=== PATIENT | female | born 1955 | race Caucasian/White ===

== ENCOUNTER 2017-10-08 10:58 | Day surgery (SDC) | payer OTHER ==
[2017-09-30 15:10] VITALS: BMI 41.1
[~2017-10-08 10:58] MED LIST: LACTATED RINGERS 1,000 ML IV SCH
[2017-10-08] MEDS: PHENYLEPHRINE 10% OPHTH DROPS 5 ML BTL OP ONE ×3 (12:12→12:32)
[2017-10-08] MEDS: CYCLOPENTOLATE 1% OPHTH SOLN 2 ML BTL OP ONE ×3 (12:15→12:35)
[2017-10-08 12:18] VITALS: RESP 16; TEMP 98
[2017-10-08] MEDS: FLURBIPROFEN 0.03% OPHTH DROPS 2.5 ML BTL OP ONE ×3 (12:18→12:38)
[2017-10-08] MEDS ORDERED: LIDOCAINE 1% 20 ML VIAL (10MG/ML) FOR IV START INTRADERMA ONE (12:18)
[2017-10-08] MEDS ORDERED: PROPOFOL 10 MG/ML 20 ML VIAL IV ONE (13:14)
[2017-10-08] MEDS ORDERED: HYALURONATE SODIUM INTRAOCULAR 1 EACH SYRINGE (10MG/ML) INTRAOCULA ONE (13:19)
[2017-10-08] MEDS ORDERED: BALANCED SALT IRRIG SOLN COMB2 15 ML IRRIG.SOLN INTRAOCULA ONE (13:19)
[2017-10-08] MEDS ORDERED: EPINEPHrine (PF) 0.5 ML in BALANCED SALT IRRIG SOLN COMB2 500 ML IRRIGATION ONE (13:20)
[2017-10-08] MEDS ORDERED: LIDOCAINE 1% (PF) 10MG/ML VIAL MISCELLANE ONE (13:27)
--- NOTE | 2017-10-08 13:42 | P.OP ---
Date of Procedure: 10/08/17 Procedure(s) Performed: PREOPERATIVE DIAGNOSIS: Cataract, right eye. POSTOPERATIVE DIAGNOSIS: Cataract, right eye. OPERATION: Phacoemulsification cataract, right eye. DESCRIPTION OF PROCEDURE: The patient was taken to the preoperative holding area. Intravenous Propofol was given so as to bring about adequate sedation. The following mixture was given for local anesthesia: 5 mL of 2% lidocaine, 5 mL of 0.75% Marcaine, and 1 mL of Wydase. Approximately 4 mL was injected in the retrobulbar space of the surgical eye. Additional 1 mL was then directed to the temporal area of the surgical eye. This was performed to allow adequate neurological block of the facial muscles. The patient was revived and then taken into the operative room. The patient was prepped and draped in the usual sterile manner for the operative eye. A lid speculum was put into position. The conjunctiva was resected back from the limbus in the 12 o'clock position. Bleeding was controlled with electrocautery. A #69 blade was then used and a half-thickness scleral incision approximately 1-mm posterior to the limbus was made on bare sclera. This was shelved in the clear cornea using a crescent knife. Next a 15-degree blade was used to make a stab incision at the 3 o' clock position at the corneolimbal interface. Keratome blade was then used and the superior wound was extended into the anterior chamber. Viscoelastic was injected into the anterior chamber and to maintain its form. Next, a cystotome was used and a continuous anterior capsulotomy was made without difficulty. Hydrodissection using a blunt cannula and BSS was performed. Phaco probe was then employed and a groove extending from 12 to 6 o'clock in the lens was created. A Abimael wand was used through the stab incision so as to perform a divide and conquer technique. Next an irrigation aspiration probe was utilized and any residual cortex was removed from the eye. Again, viscoelastic was injected into the anterior chamber. An Isaias posterior chamber lens implant was placed in the cartridge and injected into the anterior chamber without difficulty. The Zodioey hook was utilized to spin the lens into position and this was again performed without any difficulty. The irrigation and aspiration probe was again employed and any residual viscoelastic was removed from the eye. Then BSS was injected into the limbal stab incision and the anterior chamber re-inflated. The conjunctiva was reapproximated using electrocautery. One drop of 0.25% Timoptic was placed over the corneal along with TobraDex ophthalmic ointment. Two sterile patches and a Sullivan eye shield were taped into position. The patient was transported to the recovery room in stable condition. Pathology: none sent Condition: stable Disposition: same day
[2017-10-08 14:03] VITALS: BP 136/83; PULSE 76
[2017-10-08] MEDS ORDERED: GENTAMICIN/PREDNISOL AC OPHTH OINT 3.5GM OPHTHALMIC ONE (23:00)
[2017-10-08] MEDS ORDERED: BUPIVACAINE (PF) 0.75% 5 ML, HYALURONIDASE, HUMAN RECOMB 150 UNIT, LIDOCAINE 2% (PF) 10... MISCELLANE ONE ×3 (23:00)
[2017-10-08] MEDS ORDERED: TIMOLOL 0.5% OPHTH DROPS 5 ML BTL OP ONE (23:00)
== END 2017-10-08 14:31 | disposition home or self-care (01) ==
LOC: OR 10:58
PROVIDERS: ATTEND Ophthalmology
DX: H25.11 Age-related nuclear cataract, right eye (principal); M19.90 Unspecified osteoarthritis, unspecified site; E66.9 Obesity, unspecified; Z83.3 Family history of diabetes mellitus; Z82.49 Family history of ischemic heart disease and other diseases of the circulatory system; Z87.891 Personal history of nicotine dependence; Z88.2 Allergy status to sulfonamides; Z88.5 Allergy status to narcotic agent; Z68.41 Body mass index [BMI] 40.0-44.9, adult; Z79.1 Long term (current) use of non-steroidal anti-inflammatories (NSAID)
CPT/HCPCS: 66984; V2632; J3470; J2001 ×2; J0171; J2704

== ENCOUNTER → 2019-02-02 | Outpatient (CLI) | payer OTHER ==
--- NOTE | 2019-02-02 16:42 | BD ---
EXAMINATION TYPE: Axial Bone Density DATE OF EXAM: 02/02/2019 COMPARISON: NONE CLINICAL HISTORY: Height: 65.7 IN Weight: 228 LBS RISK FACTORS HISTORY OF: History of Wrist Fracture: YES RIGHT When: AGE 27 Active: YES Postmenopausal woman: AGE 53 MEDICATIONS: Additional Medications: NONE EXAM MEASUREMENTS: Bone mineral densitometry was performed using the uSamp System. Bone mineral density as measured about the Lumbar spine is: ----- L1-L4(G/cm2): 1.585 T Score Values are as follows: ----- L2: 4.0 ----- L3: 3.9 ----- L4: 2.9 ----- L1-L4: 3.4 Bone mineral density BASELINE Bone mineral density about the R hip (g/cm2): 1.103 Bone mineral density about the L hip (g/cm2): 1.198 T Score values are as follows: -----R Neck: 0.5 -----L Neck: 1.1 -----R Total: 1.6 -----L Total: 2.0 Bone mineral density BASELINE IMPRESSION: Normal (Values between +1 and -1 indicate normal bone mass). Consider repeating this study in 5 year s or sooner if there is some new clinical indication. NOTE: T-SCORE=SD OF THE YOUNG ADULT MEAN.
--- NOTE | 2019-02-03 11:12 | MM ---
Reason for exam: screening (asymptomatic). History: Patient is postmenopausal. Took hormonal contraceptives for 1 year. Physical Findings: A clinical breast exam by your physician is recommended on an annual basis and results should be correlated with mammographic findings. MG Screening Mammo w CAD Bilateral CC and MLO view(s) were taken. There are scattered fibroglandular densities. A few scattered benign round punctate calcifications. No significant changes when compared with prior studies. ASSESSMENT: Negative, BI-RAD 1 RECOMMENDATION: Routine screening mammogram of both breasts in 1 year.
== END ==
LOC: RADMAMWWP 08:05
PROVIDERS: ATTEND Family Medicine
DX: Z12.31 Encounter for screening mammogram for malignant neoplasm of breast (principal); Z13.820 Encounter for screening for osteoporosis
CPT/HCPCS: 77067; 77080

== ENCOUNTER 2021-10-23 12:21 | Day surgery (SDC) | payer OTHER ==
[2021-10-19 10:57] VITALS: BMI 38.5
[~2021-10-23 12:21] MED LIST changes: +DEXAMETHASONE SOD PHOSPHATE 4 MG/ML 1 ML VIAL IV ONE; +MIDAZOLAM 2 MG/2 ML VIAL IV PRN; +ONDANSETRON 4 MG/2 ML VIAL IVP ONE; +Pre Op ABX Message 1 EACH MISC MISCELLANE ONE; +SCOPOLAMINE 1 MG/72 HR PATCH TRANSDERM ONE; +fentaNYL (PF) 50 MCG/ML 2 ML AMP IV PRN
[2021-10-23 12:48] VITALS: RESP 16; TEMP 97.3
[2021-10-23] MEDS ORDERED: LIDOCAINE 1% (10MG/ML) FOR IV START INTRADERMA ONE (13:02)
[2021-10-23] MEDS ORDERED: PROPOFOL 10 MG/ML 20 ML VIAL IV ONE (14:39)
[2021-10-23] MEDS ORDERED: LIDOCAINE 2% INJ 20 MG/ML (2 ML VIAL) ONE (14:39)
[2021-10-23] MEDS ORDERED: DEXAMETHASONE SOD PHOSPHATE 10 MG/ML 1 ML VIAL ONE (14:39)
[2021-10-23] MEDS ORDERED: MIDAZOLAM 2 MG/2 ML VIAL ONE (14:39)
[2021-10-23] MEDS ORDERED: KETOROLAC 15 MG/ML 1 ML VIAL ONE (14:39)
[2021-10-23] MEDS ORDERED: fentaNYL (PF) 50 MCG/ML 2 ML AMP ONE (14:39)
[2021-10-23] MEDS ORDERED: LIDOCAINE 1%-EPI 1:100,000 20 ML VIAL SQ ONE ×2 (14:44)
[2021-10-23] MEDS ORDERED: BUPIVACAINE (PF) 0.5% 30 ML VIAL MISCELLANE ONE ×2 (14:44)
[2021-10-23 15:23] VITALS: PULSE 85
--- NOTE | 2021-10-23 15:33 | P.OP ---
Date of Procedure: 10/23/21 Preoperative Diagnosis: Right middle finger mucous cyst Right middle finger DIP arthritis Postoperative Diagnosis: The same Procedure(s) Performed: 1 right middle finger excision of osteophyte 2 right middle finger excision of mucous cyst Anesthesia: MAC, local Surgeon: Kelley Winter Estimated Blood Loss (ml): 1 Pathology: none sent Condition: stable Disposition: PACU Indications for Procedure: Breana is a 66-year-old female who's noticed a bump on the radial side of her middle finger DIP joint. This has come and gone for quite a while now but is sore to the touch and quite bothersome. We had a long discussion about her treatment options and she would like to proceed with an excision of the cyst as well as a debridement of the osteophytes. She understands that this does not definitively treat the underlying arthritis there is a chance of recurrence. Description of Procedure: The patient, operative extremity, and procedure were identified in the preoperative holding area. After informed consent was obtained the patient was brought back to the operating room where a digital block was performed. The extremity was prepped and draped in normal sterile fashion. After formal timeout was performed a finger tourniquet was applied. A T-shaped incision was made overlying the mucous cyst. Dissection was carried down to the mucous cyst with care taken to save as many dorsal veins as possible. Extensor tendon was identified and the stalk of the cyst was found to enter the DIP joint. Extensor was carefully protected and the stalk of the cyst was removed. The extensor tendon was gently elevated and a large osteophyte was debrided off the distal phalanx. Tourniquet was then let down hemostasis was achieved and the wound was closed with 5-0 chromic sutures. Wound was dressed with Adaptic Cristobal wrap and a tongue depressor splint with Coban. Patient was aroused by the anesthesia team and brought back to PACU in stable condition
[2021-10-23 15:38] VITALS: BP 135/83
== END 2021-10-23 15:57 | disposition home or self-care (01) ==
LOC: OR 12:21
PROVIDERS: ATTEND Orthopaedic Surgery Hand Surgery
DX: M71.341 Other bursal cyst, right hand (principal); M19.041 Primary osteoarthritis, right hand; M25.741 Osteophyte, right hand; I10 Essential (primary) hypertension; E78.5 Hyperlipidemia, unspecified; Z88.2 Allergy status to sulfonamides; Z88.5 Allergy status to narcotic agent; Z79.899 Other long term (current) drug therapy; Z87.891 Personal history of nicotine dependence; Z82.49 Family history of ischemic heart disease and other diseases of the circulatory system; Z83.3 Family history of diabetes mellitus
CPT/HCPCS: 26160; 26236; J2250; J1100 ×2; J2405; J3010; J1885; J2704; J2001

== ENCOUNTER → 2021-12-06 | Outpatient (CLI) | payer OTHER ==
--- NOTE | 2021-12-06 19:12 | US ---
EXAMINATION TYPE: US kidneys/renal and bladder DATE OF EXAM: 12/06/2021 COMPARISON: NONE CLINICAL HISTORY: N18.30 CKD STAGE 3. CKD, pt states recent abnormal labs EXAM MEASUREMENTS: Right Kidney: 10.9 x 4.9 x 4.7 cm Left Kidney: 11.7 x 4.9 x 5.5 cm Right Kidney: Appeared wnl Left Kidney: Appeared wnl Bladder: wnl Bilateral Jets seen: No IMPRESSION: 1. Normal renal ultrasound
== END | disposition home or self-care (01) ==
LOC: RADUSWWP 16:10
PROVIDERS: ATTEND Family Medicine
DX: N18.30 Chronic kidney disease, stage 3 unspecified (principal)
CPT/HCPCS: 76770

== ENCOUNTER 2023-01-10 17:19 | Emergency (ER) | payer OTHER ==
--- NOTE | 2023-01-10 17:44 | ED ---
General Adult HPI - General Source: patient, RN notes reviewed <Doreen Moore - Last Filed: 01/10/23 17:43> <Lincoln Hutchinson - Last Filed: 01/10/23 20:49> <Christiano Desir - Last Filed: 01/11/23 03:42> - General Stated complaint: Increased heart rate Time Seen by Provider: 01/10/23 17:42 - History of Present Illness Initial comments: 67-year-old female presents emergency Department with chief complaint of shortness of breath. Patient states that she was seen at her primary care provi jose j's office today, Dr. Yan who sent her to the emergency center for further evaluation. (Doreen Moore) This is a 67-year-old female who presents emergency department stating that for the about 2 weeks she has been sick and she went to an urgent care and they told her that she had a sinus infection double. Patient states ear infection and bronchitis slight placed on antibiotic she believes was amoxicillin. Patient states she was finished with antibiotics yesterday. Patient states she still doesn't feel well and she's been getting a bunch of headaches today is part icularly anytime she stands up. Patient has noticed that her blood pressure was elevated at triage and she states is extremely unusual for her. Patient denies any numbness weakness. Patient states she does have quite a cough and has not gone away at all. Patient states she has chest pain when she coughs and 2 weeks ago she was having a little anterior chest pain as well. Patient denies abdomi nal pain palpitations nausea vomiting diarrhea (Lincoln Hutchinson) - Related Data Home Medications Medication Instructions Recorded Confirmed hydroCHLOROthiazide 25 mg PO DAILY 10/19/21 01/10/23 Mirtazapine [Remeron] 15 mg PO HS 01/10/23 01/10/23 Rosuvastatin [Crestor] 10 mg PO DAILY 01/10/23 01/10/23 Allergies Allergy/AdvReac Type Severity Reaction Status Date / Time Sulfa (Sulfonamide Allergy Rash//nause Verified 01/10/23 20:14 Antibiotics) a/vomiting codeine AdvReac "makes me Verified 01/10/23 20:14 hyper" Review of Systems ROS Other: All systems not noted in ROS Statement are negative. <Doreen Moore - Last Filed: 01/10/23 17:43> ROS Other: All systems not noted in ROS Statement are negative. <Lincoln Hutchinson - Last Filed: 01/10/23 20:49> ROS Other: All systems not noted in ROS Statement are negative. <KarleeChristiano Celia - Last Filed: 01/11/23 03:42> ROS Statement: Those systems with pertinent positive or pertinent negative responses have been documented in the HPI. Past Medical History Past Medical History: Eye Disorder, GERD/Reflux, Hyperlipidemia, Hypertension, Osteoarthritis (OA) Additional Past Medical History / Comment(s): MIGRAINE HEADACHE, KIDNEY FUNCTION AT 57, History of Any Multi-Drug Resistant Organisms: None Reported Past Surgical History: Cholecystectomy, Orthopedic Surgery, Tubal Ligation Additional Past Surgical History / Comment(s): rt eye detached retina sx, left knee arthroscopy x2, rt knee x1, tendons removed from josse feet and put in josse thumb joints Past Anesthesia/Blood Transfusion Reactions: Motion Sickness Smoking Status: Former smoker - Past Family History Son(s) Family Medical History: Deep Vein Thrombosis (DVT) <Doreen Moore - Last Filed: 01/10/23 17:43> General Exam <Doreen Moore - Last Filed: 01/10/23 17:43> <Lincoln Hutchinson - Last Filed: 01/10/23 20:49> - General Exam Comments Initial Comments: Visual Physical Exam Vital signs reviewed General: Well-appearing, nontoxic, no acute distress. Head: Normocephalic, atraumatic Eyes: PERRLA, EOMI ENT: Airway patent Chest: Nonlabored breathing Skin: No visual rash, normal skin tone Neuro: Alert and oriented 3 Musculoskeletal: No gross abnormalities (Doreen Moore) GENERAL: Patient is well-developed and well-nourished. Patient is nontoxic and well- hydrated and is in mild distress. ENT: Neck is soft and supple. No significant lymphadenopathy is noted. Oropharynx is clear. Moist mucous membranes. Neck has full range of motion without eliciting any pain. EYES: The sclera were anicteric and conjunctiva were pink and moist. Extraocular movements were intact and pupils were equal round and reactive to light. Eyelids were unremarkable. PULMONARY: Unlabored respirations. Good breath sounds bilaterally. No audible rales rhonchi or wheezing was noted. CARDIOVASCULAR: Patient is tachycardic at 130 beats a minute ABDOMEN: Soft and nontender with normal bowel sounds. SKIN: Skin is clear with no lesions or rashes and otherwise unremarkable. NEUROLOGIC: Patient is alert and oriented x3. Cranial nerves II through XII are grossly intact. Motor and sensory are also intact. Normal speech, volume and content. Symmetrical smile. MUSCULOSKELETAL: Normal extremities with adequate strength and full range of motion. LYMPHATICS: No significant lymphadenopathy is noted PSYCHIATRIC: Normal psychiatric evaluation. (Lincoln Hutchinson) Course Vital Signs 01/10/23 01/10/23 01/10/23 17:42 19:43 20:00 Temperature 99.0 F 101.5 F H Pulse Rate 127 H 129 H Respiratory 22 32 H Rate Blood Pressure 191/79 170/106 177/88 O2 Sat by Pulse 97 Oximetry 01/10/23 01/10/23 01/10/23 20:21 21:17 22:20 Temperature 100.8 F H Pulse Rate 129 H 113 H Respiratory 26 H 20 Rate Blood Pressure 191/103 163/75 125/80 O2 Sat by Pulse Oximetry 01/11/23 01/11/23 02:13 02:30 Temperature 97.5 F L Pulse Rate 93 Respiratory 17 Rate Blood Pressure 106/57 O2 Sat by Pulse Oximetry Medical Decision Making <Doreen Moore - Last Filed: 01/10/23 17:43> - Lab Data Result diagrams: 01/10/23 18:30 01/10/23 18:30 <Lincoln Hutchinson - Last Filed: 01/10/23 20:49> - Lab Data Result diagrams: 01/10/23 18:30 01/10/23 18:30 <Christiano Desir - Last Filed: 01/11/23 03:42> - Medical Decision Making I preformed the quick note portion of this chart. Electronically signed by Doreen Moore PA-C (Doreen Moore) EKG is interpreted by myself. EKG shows sinus tachycardia at 130 bpm CO interval 228 QRS is 82 QT interval 333 QTC is 410. Patient's EKG shows no ST segment elevation or depression Was pt. sent in by a medical professional or institution ([facility], [employer]AR[employer], urgent care, hospital, or fci...) When possible be specific @ -Patient's primary medical care doctor sent her to the emergency department Did you speak to anyone other than the patient for history (EMS, parent, family, police, friend...)? What history was obtained from this source @ -[No] Did you review nursing and triage notes (agree or disagree)? Why? @ -[I reviewed and agree with nursing and triage notes] Were old charts reviewed (outside hosp., previous admission, EMS record, old EKG, old radiological studies, urgent care reports/EKG's, fci records)? Report findings @ -[No old charts were reviewed] Differential Diagnosis (chest pain, altered mental status, abdominal pain women, abdominal pain men, vaginal bleeding, weakness, fever, dyspnea, syncope, headache, dizziness, GI bleed, back pain, seizure, CVA, palpatations, mental health, musculoskeletal)? @ -Differential Fever: Pneumonia, viral URI, endocarditis, myocarditis, pericarditis, otitis, sinusitis, peritonsillar Abscess, retropharyngeal Abscess, epiglottitis, peritonitis, appendicitis, Silvia cystitis, diverticulitis, hepatitis, colitis, UTI, PID, TOA, pyelonephritis, prostatitis, epididymitis, meningitis, encephalitis, pulmonary embolism, CVA, thyroid storm, pancreatitis, adrenal crisis, cavernous sinus thrombosis, this is not meant to be an all-inclusive list. EKG interpreted by me (3pts min.). @ -[As above] X-rays interpreted by me (1pt min.). @ -Chest x-ray shows no acute abnormality CT interpreted by me (1pt min.). @ -[None done] U/S interpreted by me (1pt. min.). @ -[None done] What testing was considered but not performed or refused? (CT, X-rays, U/S, labs)? Why? @ -[None] What meds were considered but not given or refused? Why? @ -[None] Did you discuss the management of the patient with other professionals (pro fessionals i.e. , PA, TARIFF EXPERT, lab, RT, psych nurse, director social welfare, newspaper manager, teacher, hazard mitigation officer, case loader operator)? Give summary @ -[No] Was smoking cessation discussed for >3mins.? @ -[No] Was critical care preformed (if so, how long)? @ -[No] Were there social determinants of health that impacted care today? How? (Homelessness, low income, unemployed, alcoholism, drug addiction, brar sportation, low edu. Level, literacy, decrease access to med. care, assisted, rehab)? @ -[No] Was there de-escalation of care discussed even if they declined (Discuss DNR or withdrawal of care, Hospice)? DNR status @ -[No] What co-morbidities impacted this encounter? (DM, HTN, Smoking, COPD, CAD, Cancer, CVA, ARF, Chemo, Hep., AIDS, mental health diagnosis, sleep apnea, morbid obesity)? @ -[None] Was patient admitted / discharged? Hospital course, mention meds given and route, prescriptions, significant lab abnormalities, going to OR and other pertinent info. @ -Dr. Desir was taking over the patient at 9 PM (Lincoln Hutchinson) Patient care signed out to me by previous shift physician, Dr. Hutchinson. Briefly, patient 67-year-old female sent in by her primary care physician for worsening URI symptoms. She complete course of antibiotics. Vitals upon arrival showed an elevated blood pressure 191/79 with tachycardia 127. She had a temperature 11.5. She been doing with URI type symptoms for the last several days. Patient observed in emergency department for almost the totality of 10 hours due to delay in obtaining urinary sample for urinalysis. Urinalysis is negative. Rest of labs within acceptable limits. Vital test negative. Labs are unremarkable. Chest x-ray is clear, computed tomography scan of the brain is negative. Patient does not have a pulmonary embolism which she explains is why she is initially sent to the emergency room by her primary care doctor. Patient likely suffering from persistent URI cold symptoms. Patient discharged. Her primary care doctor had already ordered her antibiotics. Patient grew for discharge. (Christiano Desir) - Lab Data Lab Results 01/10/23 01/10/23 01/10/23 Range/Units 18:30 18:30 18:30 WBC 11.7 H (3.8-10.6) k/uL RBC 5.24 (3.80-5.40) m/uL Hgb 14.8 (11.4-16.0) gm/dL Hct 44.0 (34.0-46.0) % MCV 84.1 (80.0-100.0) fL MCH 28.2 (25.0-35.0) pg MCHC 33.5 (31.0-37.0) g/dL RDW 15.0 (11.5-15.5) % Plt Count 207 (150-450) k/uL MPV 8.4 Neutrophils % 64 % Lymphocytes % 23 % Monocytes % 4 % Eosinophils % 7 % Basophils % 0 % Neutrophils # 7.5 (1.3-7.7) k/uL Lymphocytes # 2.7 (1.0-4.8) k/uL Monocytes # 0.4 (0-1.0) k/uL Eosinophils # 0.8 H (0-0.7) k/uL Basophils # 0.0 (0-0.2) k/uL PT 10.1 (10.0-12.5) sec INR 0.9 (<1.2) APTT 26.3 (22.0-30.0) sec D-Dimer (<0.60) mg/L FEU Sodium 138 (137-145) mmol/L Potassium 3.9 (3.5-5.1) mmol/L Chloride 101 (98-107) mmol/L Carbon Dioxide 25 (22-30) mmol/L Anion Gap 12 mmol/L BUN 15 (7-17) mg/dL Creatinine 0.86 (0.52-1.04) mg/dL Est GFR (CKD-EPI)AfAm 83 (>60 ml/min/1.73 sqM) Est GFR (CKD-EPI)NonAf 72 (>60 ml/min/1.73 sqM) Glucose 108 H (74-99) mg/dL Plasma Lactic Acid Quinn (0.7-2.0) mmol/L Calcium 9.4 (8.4-10.2) mg/dL Total Bilirubin 0.7 (0.2-1.3) mg/dL AST 23 (14-36) U/L ALT 22 (4-34) U/L Alkaline Phosphatase 82 (38-126) U/L Troponin I (0.000-0.034) ng/mL NT-Pro-B Natriuret Pep <20 pg/mL Total Protein 7.5 (6.3-8.2) g/dL Albumin 4.5 (3.5-5.0) g/dL Urine Color Urine Appearance (Clear) Urine pH (5.0-8.0) Ur Specific [place] (1.001-1.035) Urine Protein (Negative) Urine Glucose (UA) (Negative) Urine Ketones (Negative) Urine Blood (Negative) Urine Nitrite (Negative) Urine Bilirubin (Negative) Urine Urobilinogen (<2.0) mg/dL Ur Leukocyte Esterase (Negative) Heterophile Antibody (Negative) Influenza Type A (PCR) (Not Detectd) Influenza Type B (PCR) (Not Detectd) RSV (PCR) (Not Detectd) SARS-CoV-2 (PCR) (Not Detectd) 01/10/23 01/10/23 01/10/23 Range/Units 18:30 18:30 20:03 WBC (3.8-10.6) k/uL RBC (3.80-5.40) m/uL Hgb (11.4-16.0) gm/dL Hct (34.0-46.0) % MCV (80.0-100.0) fL MCH (25.0-35.0) pg MCHC (31.0-37.0) g/dL RDW (11.5-15.5) % Plt Count (150-450) k/uL MPV Neutrophils % % Lymphocytes % % Monocytes % % Eosinophils % % Basophils % % Neutrophils # (1.3-7.7) k/uL Lymphocytes # (1.0-4.8) k/uL Monocytes # (0-1.0) k/uL Eosinophils # (0-0.7) k/uL Basophils # (0-0.2) k/uL PT (10.0-12.5) sec INR (<1.2) APTT (22.0-30.0) sec D-Dimer 0.53 (<0.60) mg/L FEU Sodium (137-145) mmol/L Potassium (3.5-5.1) mmol/L Chloride (98-107) mmol/L Carbon Dioxide (22-30) mmol/L Anion Gap mmol/L BUN (7-17) mg/dL Creatinine (0.52-1.04) mg/dL Est GFR (CKD-EPI)AfAm (>60 ml/min/1.73 sqM) Est GFR (CKD-EPI)NonAf (>60 ml/min/1.73 sqM) Glucose (74-99) mg/dL Plasma Lactic Acid Quinn 1.5 (0.7-2.0) mmol/L Calcium (8.4-10.2) mg/dL Total Bilirubin (0.2-1.3) mg/dL AST (14-36) U/L ALT (4-34) U/L Alkaline Phosphatase (38-126) U/L Troponin I <0.012 (0.000-0.034) ng/mL NT-Pro-B Natriuret Pep pg/mL Total Protein (6.3-8.2) g/dL Albumin (3.5-5.0) g/dL Urine Color Urine Appearance (Clear) Urine pH (5.0-8.0) Ur Specific [place] (1.001-1.035) Urine Protein (Negative) Urine Glucose (UA) (Negative) Urine Ketones (Negative) Urine Blood (Negative) Urine Nitrite (Negative) Urine Bilirubin (Negative) Urine Urobilinogen (<2.0) mg/dL Ur Leukocyte Esterase (Negative) Heterophile Antibody (Negative) Influenza Type A (PCR) (Not Detectd) Influenza Type B (PCR) (Not Detectd) RSV (PCR) (Not Detectd) SARS-CoV-2 (PCR) (Not Detectd) 01/10/23 01/10/23 01/11/23 Range/Units 20:19 22:22 02:39 WBC (3.8-10.6) k/uL RBC (3.80-5.40) m/uL Hgb (11.4-16.0) gm/dL Hct (34.0-46.0) % MCV (80.0-100.0) fL MCH (25.0-35.0) pg MCHC (31.0-37.0) g/dL RDW (11.5-15.5) % Plt Count (150-450) k/uL MPV Neutrophils % % Lymphocytes % % Monocytes % % Eosinophils % % Basophils % % Neutrophils # (1.3-7.7) k/uL Lymphocytes # (1.0-4.8) k/uL Monocytes # (0-1.0) k/uL Eosinophils # (0-0.7) k/uL Basophils # (0-0.2) k/uL PT (10.0-12.5) sec INR (<1.2) APTT (22.0-30.0) sec D-Dimer (<0.60) mg/L FEU Sodium (137-145) mmol/L Potassium (3.5-5.1) mmol/L Chloride (98-107) mmol/L Carbon Dioxide (22-30) mmol/L Anion Gap mmol/L BUN (7-17) mg/dL Creatinine (0.52-1.04) mg/dL Est GFR (CKD-EPI)AfAm (>60 ml/min/1.73 sqM) Est GFR (CKD-EPI)NonAf (>60 ml/min/1.73 sqM) Glucose (74-99) mg/dL Plasma Lactic Acid Quinn (0.7-2.0) mmol/L Calcium (8.4-10.2) mg/dL Total Bilirubin (0.2-1.3) mg/dL AST (14-36) U/L ALT (4-34) U/L Alkaline Phosphatase (38-126) U/L Troponin I (0.000-0.034) ng/mL NT-Pro-B Natriuret Pep pg/mL Total Protein (6.3-8.2) g/dL Albumin (3.5-5.0) g/dL Urine Color Light Yellow Urine Appearance Clear (Clear) Urine pH 6.0 (5.0-8.0) Ur Specific [place] 1.004 (1.001-1.035) Urine Protein Negative (Negative) Urine Glucose (UA) Negative (Negative) Urine Ketones Negative (Negative) Urine Blood Negative (Negative) Urine Nitrite Negative (Negative) Urine Bilirubin Negative (Negative) Urine Urobilinogen 0.2 (<2.0) mg/dL Ur Leukocyte Esterase Negative (Negative) Heterophile Antibody Negative (Negative) Influenza Type A (PCR) Not Detected (Not Detectd) Influenza Type B (PCR) Not Detected (Not Detectd) RSV (PCR) Not Detected (Not Detectd) SARS-CoV-2 (PCR) Not Detected (Not Detectd) Disposition <Doreen Moore - Last Filed: 01/10/23 17:43> <Lincoln Hutchinson - Last Filed: 01/10/23 20:49> Is patient prescribed a controlled substance at d/c from ED?: No Time of Disposition: 03:42 <Christiano Desir - Last Filed: 01/11/23 03:42> Clinical Impression: URI (upper respiratory infection) Disposition: HOME SELF-CARE Condition: Good Instructions (If sedation given, give patient instructions): Cold Symptoms (ED) Referrals: Mt Yan MD [Primary Care Provider] - 1-2 days
--- NOTE | 2023-01-10 18:27 | XR ---
EXAMINATION: XR chest 2V: 01/10/2023 5:57 PM CLINICAL INDICATION: difficulty breathing TECHNIQUE: Departmental protocol COMPARISON: None FINDINGS: The lungs are clear. The pleural spaces are negative. The cardiac silhouette is not enlarged. The remainder of the mediastinal silhouette is unremarkable. The skeletal structures and soft tissues are negative for acute findings. IMPRESSION: No acute radiographic process.
[2023-01-10 19:00] LABS: Basophils % (A) 0 %; Eosinophils # (A) 0.8 k/uL (0-0.7); Eosinophils % (A) 7 %; HGB 14.8 gm/dL (11.4-16.0); Lymphocytes # (A) 2.7 k/uL (1.0-4.8); Lymphocytes % (A) 23 %; MCH 28.2 pg (25.0-35.0); MCHC 33.5 g/dL (31.0-37.0); MCV 84.1 fL (80.0-100.0); Mean Platelet Volume 8.4; Monocytes # (A) 0.4 k/uL (0-1.0); Monocytes % (A) 4 %; Neutrophils # (A) 7.5 k/uL (1.3-7.7); Neutrophils % (A) 64 %; Platelet Count 207 k/uL (150-450); RBC 5.24 m/uL (3.80-5.40); WBC 11.7 k/uL (3.8-10.6)
[2023-01-10 19:03] LABS: ALT 22 U/L (4-34); AST 23 U/L (14-36); African American GFR (CKD) 83 (>60 ml/min/1.73 sqM); Albumin 4.5 g/dL (3.5-5.0); Alkaline Phosphatase 82 U/L (38-126); Anion Gap 12 mmol/L; Blood Urea Nitrogen 15 mg/dL (7-17); Calcium 9.4 mg/dL (8.4-10.2); Carbon Dioxide 25 mmol/L (22-30); Chloride 101 mmol/L (98-107); Glucose 108 mg/dL (74-99); Non-African American GFR(CKD) 72 (>60 ml/min/1.73 sqM); Potassium 3.9 mmol/L (3.5-5.1); Sodium 138 mmol/L (137-145); Total Bilirubin 0.7 mg/dL (0.2-1.3); Total Protein 7.5 g/dL (6.3-8.2)
[2023-01-10 19:11] LABS: NT-Pro-B-Type Natriuretic Pept <20 pg/mL
[2023-01-10] MEDS ORDERED: ACETAMINOPHEN TAB 500 MG TAB PO STA (19:57)
[2023-01-10] MEDS ORDERED: IBUPROFEN 600 MG TAB PO STA (19:57)
[2023-01-10] MEDS ORDERED: SODIUM CHLORIDE 0.9% 1,000 ML IV ONE (19:57)
[2023-01-10] MEDS ORDERED: hydrALAZINE HCL 20 MG/ML 1 ML VIAL IVP STA (19:58)
[2023-01-10 20:06] LABS: INR 0.9 (<1.2); Partial Thromboplastin Time 26.3 sec (22.0-30.0); Prothrombin Time 10.1 sec (10.0-12.5)
--- NOTE | 2023-01-10 21:22 | CT ---
EXAMINATION TYPE: CT brain wo con DATE OF EXAM: 01/10/2023 HISTORY: headache CT DLP: 1227 mGycm. Automated Exposure Control for Dose Reduction was Utilized. TECHNIQUE: CT scan of the head is performed without contrast. COMPARISON: None. FINDINGS: There is no acute intracranial hemorrhage, mass, mass effect. No definite new attenuation defect. The globes are intact and the paranasal sinuses, middle ear cavities, and mastoid sinus air cells are cl ear. IMPRESSION: No acute process.
[2023-01-11] MEDS ORDERED: KETOROLAC 15 MG/ML 1 ML VIAL IVP STA (03:15)
[2023-01-11 03:35] LABS: Appearance,Urine Clear (Clear); Bilirubin,Urine Negative (Negative); Blood,Urine Negative (Negative); Color,Urine Light Yellow; Glucose,Urine (UA) Negative (Negative); Ketones,Urine Negative (Negative); Leukocyte Esterase,Urine Negative (Negative); Nitrite,Urine Negative (Negative); Protein,Urine Negative (Negative); Specific Gravity,Urine 1.004 (1.001-1.035); Urobilinogen,Urine 0.2 mg/dL (<2.0)
[2023-01-11 04:19] VITALS: BP 116/52; PULSE 96; RESP 19; TEMP 98.3
== END 2023-01-11 04:24 | disposition home or self-care (01) ==
LOC: EC 17:19
DX: J06.9 Acute upper respiratory infection, unspecified (principal); I10 Essential (primary) hypertension; E78.5 Hyperlipidemia, unspecified; M19.90 Unspecified osteoarthritis, unspecified site; Z79.899 Other long term (current) drug therapy; Z87.891 Personal history of nicotine dependence; Z88.2 Allergy status to sulfonamides; Z88.5 Allergy status to narcotic agent; Z20.822 Contact with and (suspected) exposure to COVID-19; Z90.49 Acquired absence of other specified parts of digestive tract
CPT/HCPCS: 99285; 96374; 96375; 96361 ×7; 36415; 93005; 85379; 83880; 80053; 83605; 84484; 85025; 85610; 85730; 86308; 81003; 87636; 71046; 70450; J0360; J1885

== ENCOUNTER → 2023-02-01 | Outpatient (CLI) | payer OTHER ==
--- NOTE | 2023-02-04 07:57 | MM ---
Reason for Exam: Screening (asymptomatic). Last mammogram was performed 4 year(s) and 0 month(s) ago. Patient History: Menarche at age 14. First Full-Term at age 20. Postmenopausal. Patient used Hormonal Contraceptives for 1 year. Risk Values: Dottie 5 year model risk: 1.2%. NCI Lifetime model risk: 4.6%. Prior Study Comparison: 02/02/2019 Bilateral Screening Mammogram, [facility]. Tissue Density: There are scattered fibroglandular densities. Findings: Analyzed By CAD. Left breast: Asymmetry left breast MLO view 6.3 mm 6.5 cm from nipple anterior/middle depth. Right breast: There is no suspicious group of microcalcifications or new suspicious mass. Overall Assessment: Incomplete: need additional imaging evaluation, BI-RAD 0 Management: Diagnostic Mammogram of the left breast. [facility] will attempt to contact patient to return for supplemental views and ultrasound if indicated. Patient should continue monthly self-breast exams. A clinical breast exam by your physician is recommended on an annual basis. This exam should not preclude additional follow-up of suspicious palpable abnormalities. Note on Dottie scores and lifetime risk: 1. A Dottie score greater than 3% is considered moderate risk. If this is the case, consider specialist referral to assess eligibility for a risk reducing agent. 2. If overall lifetime risk for the development of breast cancer is 20% or higher, the patient may qualify for future screening with alternating mammogram and breast MRI. Electronically signed and approved by: Niko Dunaway DO
== END | disposition home or self-care (01) ==
LOC: RADMAMWWP 14:42
PROVIDERS: ATTEND Family Medicine
DX: Z12.31 Encounter for screening mammogram for malignant neoplasm of breast (principal); Z78.0 Asymptomatic menopausal state
CPT/HCPCS: 77067

== ENCOUNTER → 2023-02-19 | Outpatient (CLI) | payer OTHER ==
--- NOTE | 2023-02-19 14:21 | MM ---
Reason for Exam: Additional evaluation requested from abnormal screening. Last screening mammogram was performed less than 1 month ago. Patient History: Menarche at age 14. First Full-Term at age 20. Postmenopausal. Patient used Hormonal Contraceptives for 1 year. Risk Values: Dottie 5 year model risk: 1.2%. NCI Lifetime model risk: 4.6%. Prior Study Comparison: 02/02/2019 Bilateral Screening Mammogram, [facility]. 02/01/2023 Bilateral MG screening mammo w CAD, [facility]. Tissue Density: Left: There are scattered fibroglandular densities. Findings: Analyzed By CAD. The distortion in the upper outer aspect of the left breast appears to be persistent. This is located 6 cm from the nipple. Ultrasound can further evaluate this finding. A nodule measuring 0.5 cm is identified within the mid middle to anterior position of the left breast 5 cm from the nipple. Ultrasound recommended for additional evaluation. Overall Assessment: Incomplete: need additional imaging evaluation, BI-RAD 0 Management: Diagnostic Breast Ultrasound of the left breast. A negative mammogram report should not preclude additional follow up of suspicious palpable abnormalities. Patient should continue monthly self breast exam. A clinical breast exam by your physician is recommended on an annual basis and results should be correlated with mammographic findings. Electronically signed and approved by: Akira Hill D.O. Radiologis
--- NOTE | 2023-02-19 14:50 | USB ---
Reason for Exam: Additional evaluation requested from abnormal screening. Patient History: Menarche at age 14. First Full-Term at age 20. Postmenopausal. Patient used Hormonal Contraceptives for 1 year. Risk Values: Dottie 5 year model risk: 1.2%. NCI Lifetime model risk: 4.6%. Technique: Method: Targeted. Prior Study Comparison: 02/02/2019 Bilateral Screening Mammogram, [facility]. 02/01/2023 Bilateral MG screening mammo w CAD, [facility]. Findings: The upper outer quadrant of the left breast, the medial section of the breast of the left breast, the axilla of the left breast and the retroareolar of the left breast were scanned. There is a 0.5 x 0.3 x 0.3 cm density 5 cm from nipple approximately 9:00 middle position by ultrasound appears to correlate with the nodular density mammography. Short-term mammographic follow-up can be performed. The distortion identified by mammography is not identified on the ultrasound. No suspicious solid lesions evident. No distortion identified by ultrasound. Overall Assessment: Probably benign, BI-RAD 3 Management: Diagnostic Mammogram of the left breast in 6 months. A clinical breast exam by your physician is recommended on an annual basis and results should be correlated with mammographic findings. This exam should not preclude additional follow-up of suspicious palpable abnormalities. Results were given to the patient verbally at the time of exam. Electronically signed and approved by: Akira Hill D.O. Radiologis
== END | disposition home or self-care (01) ==
LOC: RADMAMWWP 13:37
PROVIDERS: ATTEND Family Medicine
DX: R92.322 Mammographic fibroglandular density, left breast (principal); Z78.0 Asymptomatic menopausal state
CPT/HCPCS: 77061; 77065

== ENCOUNTER → 2023-09-30 | Outpatient (CLI) | payer OTHER ==
--- NOTE | 2023-09-30 11:01 | CA ---
Stress Echo Report Breana Zhu Age: 68 Gender: F : 1955 Exam Date: 09/30/2023 09:48 Exam Location: [facility] Ht (in): 65 Wt (lb): 245 Ordering Physician: Margo Murry MD Referring Physician: Margo Murry MD Network Planner: Sujey Jolly RDCS Technologist Procedure CPT: Indication: R10.13 acute epigastric pain ICD-9 Codes: Rhythm: Patient History: Chest pain, hypertension and hyperlipidemia Cardiac Medications: ROSUVASTATIN,,,,,, MIRTAZAPINE,,,,,, OXYBUTYNIN,,,,,, HZTZ,,,,,, KELATONIN,,,,, Medications in past 24 hours: Contrast: Stress Results Protocol: Nirav Total dose(mL): Exercise Duration (min:sec): 4:[address] Depression (mm): Angina Score: Velasco Score: METS: 5.8 Resting HR: 79 Resting BP: 143 / 80 Peak HR: 161 Peak BP: 210 / 55 Max Predicted HR: 154 105 % Max Predicted HR Target HR: 131 Double Product: [id number] Stress Summary: BP Response: Reason for Termination: MAX EXERTION/TARGET HR Cardiac Symptoms: NO SYMPTOMS ECG Analysis Resting ECG: Normal sinus rhythm normal axis normal intervals Stress ECG: Patient exercised on Nirav protocol for 4 minutes achieving 85% of predicted maximal heart rate without chest pain. At peak exercise there was having millimeter ST segment depression noted in inferolateral leads Arrhythmia: Echo Analysis Resting Echo: Normal left ventricular size wall motion systolic function Peak Echo Analysis: Normal hyperdynamic response of all segments of myocardium noted MEASUREMENTS (Male/Female) Normal Values CONCLUSIONS poor exercise tolerance Non diagnostic EKG part of the stress test No exercise induced wall motion abnormalities Dr. Jutsin Fox MD (Electronically Signed) Final Date: 30 September 2023 11:00
== END ==
LOC: RADMAMWWP 09:07
PROVIDERS: ATTEND Internal Medicine
DX: R10.13 Epigastric pain (principal); Z88.2 Allergy status to sulfonamides; Z88.5 Allergy status to narcotic agent; Z87.891 Personal history of nicotine dependence
CPT/HCPCS: 93351

== ENCOUNTER → 2023-11-20 | Outpatient (CLI) | payer OTHER ==
--- NOTE | 2023-11-20 15:15 | MM ---
Reason for Exam: Follow-up at short interval from prior study. Last screening mammogram was performed 10 month(s) ago. Patient History: Menarche at age 14. First Full-Term at age 20. Postmenopausal. Patient used Hormonal Contraceptives for 1 year. Risk Values: Dottie 5 year model risk: 1.2%. NCI Lifetime model risk: 4.4%. Prior Study Comparison: 02/02/2019 Bilateral Screening Mammogram, [facility]. 02/01/2023 Bilateral MG screening mammo w CAD, [facility]. 02/19/2023 Left MG 3D work up w/cad LT, [facility]. Tissue Density: Left: The breasts are heterogeneously dense, which may obscure small masses. Findings: Analyzed By CAD. Previously noted small nodular density is resolved. No new masses seen. No evidence for distortion or suspicious microcalcifications. Overall Assessment: Benign, BI-RAD 2 Management: Screening Mammogram of both breasts in 3 months. . Results were given to the patient verbally at the time of exam. Patient should continue monthly self-breast exams. A clinical breast exam by your physician is recommended on an annual basis. This exam should not preclude additional follow-up of suspicious palpable abnormalities. Note on Dottie scores and lifetime risk: 1. A Dottie score greater than 3% is considered moderate risk. If this is the case, consider specialist referral to assess eligibility for a risk reducing agent. 2. If overall lifetime risk for the development of breast cancer is 20% or higher, the patient may qualify for future screening with alternating mammogram and breast MRI. Electronically signed and approved by: Jose E Lyons M.D. Radiologis
--- NOTE | 2023-11-21 11:33 | BD ---
EXAMINATION TYPE: Axial Bone Density DATE OF EXAM: 11/20/2023 CLINICAL HISTORY: 68 years old Female. ICD-10 CODE: Z78.0 ASYMPTOMATIC MENOPAUSAL STATE Height: 65.5 Weight: 250 FRAX RISK QUESTIONS: Family History (Parent hip fracture): no History of Fracture in Adulthood: no Secondary Osteoporosis: no RISK FACTORS HISTORY OF: History of rt Wrist Fracture: yes When: age 27 Surgery to Spine/Hip(right/left)/Wrist (right/left): no MEDICATIONS: Thyroid Medications: no Osteoporosis Medications: no EXAM MEASUREMENTS: Bone mineral densitometry was performed using the Press-[employer] System. Bone mineral density as measured about the Lumbar spine is: ----- L1-L4(G/cm2): 1.592 T Score Values are as follows: ----- L1: 3.1 ----- L2: 3.6 ----- L3: 3.8 ----- L4: 3.0 ----- L1-L4: 3.4 Z Score Values are as follows: ----- L1: 3.5 ----- L2: 4.1 ----- L3: 4.2 ----- L4: 3.4 ----- L1-L4: 3.9 Bone mineral density has: Increased 0.4% since study of: 02/02/2019 Bone mineral density about the R hip (g/cm2): 1.233 Bone mineral density about the L hip (g/cm2): 1.253 T Score values are as follows: -----R Neck: 0.3 -----L Neck: 0.2 -----R Total: 1.8 -----L Total: 1.9 Z Score values are as follows: -----R Neck: 1.1 -----L Neck: 1.0 -----R Total: 2.2 -----L Total: 2.4 Bone mineral density has: Increased 0.6% since study of: 02/02/2019 FRAX%s: The graph provided illustrates a 9.5% chance for a major osteoporotic fx and a 0.2% chance fo r the hips probability for fx in 10 years time. IMPRESSION: Normal (Values between +1 and -1 indicate normal bone mass). Consider repeating this study in 5 year s or sooner if there is some new clinical indication. NOTE: T-SCORE=SD OF THE YOUNG ADULT MEAN.
== END | disposition home or self-care (01) ==
LOC: RADMAMWWP 14:43
PROVIDERS: ATTEND Family Medicine
DX: R92.8 Other abnormal and inconclusive findings on diagnostic imaging of breast (principal); R92.333 Mammographic heterogeneous density, bilateral breasts; M81.8 Other osteoporosis without current pathological fracture; Z78.0 Asymptomatic menopausal state
CPT/HCPCS: 77061; 77065; 77080